=== PATIENT | female | born 1995 | race Caucasian/White ===

== ENCOUNTER → 2023-01-18 10:15 | Outpatient (BNVA) | payer MEDICAID, SELFPAY | PROVIDERS: Visit Provider Nurse Practitioner Family | DX: J02.9 Acute pharyngitis, unspecified (principal) | CPT/HCPCS: 87880 ==

== ENCOUNTER → 2023-10-21 09:56 | Outpatient (CLI) | payer MEDICAID, SELFPAY ==
--- NOTE | 2023-10-21 10:00 | US_ITS ---
WS: [id number] ULTRASOUND LEFT BREAST HISTORY: N63.20 - Unspecified lump in the left breast, unspecified..., History of recent . T he palpable area as per patient is no longer present. COMPARISON: None available. TECHNIQUE: 2-D and Doppler. Ultrasound directed to the LEFT breast on the 4:00 axis in the area of interest. This is directed by the patient. There is a mildly prominent duct with a few low-level echoes. There is no increased vasc ularity or mass. US/US breast LT limited* [id number] IMPRESSION: BI-RADS: 2-Benign FOLLOW-UP: See Report Very minimally prominent ducts in the LEFT breast at 4:00. Probably related to . No mass. No mammogram will be performed.
== END | disposition home or self-care (01) ==
LOC: RAD 09:56
PROVIDERS: PCP Nurse Practitioner; Visit Provider Nurse Practitioner
DX: N63.20 Unspecified lump in the left breast, unspecified quadrant (principal)
CPT/HCPCS: 76642

== ENCOUNTER 2024-01-02 10:22 | Outpatient (CLI) | payer MEDICAID, SELFPAY ==
--- NOTE | 2024-01-02 11:00 | MR_ITS ---
WS: [id number] MRI BRAIN WITHOUT CONTRAST HISTORY: G43.909 - Migraine, unspecified, not intractable, without... COMPARISON: None available. TECHNIQUE: Diffusion imaging, multiplanar T1, T2 and FLAIR imaging obtained. No evidence for acute infarct or hemorrhage. Malcolm-white matter differentiation is normal. There are a few tiny scattered T2 and FLAIR signal hyperintensities these are predominantly within th e subcortical frontal lobe white matter. No large territory infarct. Posterior fossa is negative. Ventricles and extra-axial spaces are normal. There is marked displacement of the cerebellar tonsils. Cerebellar tonsils are pointed and extend 1.3 cm below the foramen magnum. There is mild kinking of the medulla. No signal abnormality within the upper brainstem. There is no hydrocephalus. Normal size fourth ventricle. No scoliosis identified on the upper cervical cord. Dural venous sinuses and [place] demonstrate no abnormality on this unenhanced studies. Paranasal sinuses: Clear. Mastoid air cells: Normal. Calvarium and scalp: Intact. MR/MR head wo con* [id number] IMPRESSION: 1. Chiari I malformation. Cerebellar tonsils extend 1.3 cm below the foramen m agnum. There is no obstruction of the fourth ventricle. 2. Recommendation: MRI C-spine with and without contrast to evaluate for syrin x. 3. Minimal subcortical bifrontal lobe foci of increased signal. These are nons pecific but can be seen with migraines, hypertensive disease, smoking and diabe leonides.
== END 2024-01-02 10:23 | disposition home or self-care (01) ==
LOC: RAD 10:24
PROVIDERS: PCP Nurse Practitioner; Visit Provider Nurse Practitioner
DX: G43.909 Migraine, unspecified, not intractable, without status migrainosus (principal); G93.5 Compression of brain; Q04.8 Other specified congenital malformations of brain; H53.9 Unspecified visual disturbance
CPT/HCPCS: 70551

== ENCOUNTER 2024-05-28 17:00 | Outpatient (CLI) | payer MEDICAID, SELFPAY ==
--- NOTE | 2024-05-28 17:00 | USCV_ITS ---
Nia Anderson Age: 29 Gender: F : 1995 Exam Date: 05/28/2024 17:11 Ordering Phys: Unique Mccoy ORCHARD HAND ORCHARD HAND Technologist: R Exam Location: [facility] [place]_ Indication: Right leg pain HISTORY: Right Lower extremity pain. PROCEDURES: Venous duplex imaging was performed in only the right lower extremity. The following venous structures were evaluated: common femoral vein, profunda vein, proximal portion of the greater saphenous vein, superficial femoral vein, and the popliteal vein. In addition, the posterior tibial and peroneal trunk were evaluated. FINDINGS: Normal 2-D Doppler and augmentation and compressibility throughout the lower extremity venous structures. Additional imaging through the proximal calf veins also reveals no thrombus. Limited evaluation of the greater saphenous vein is patent with no thrombus. CONCLUSIONS No DVT right lower extremity. Dr. Amira Schumacher DO (Electronically Signed) Final Date: 31 May 2024 07:57 S
== END 2024-05-28 17:01 | disposition home or self-care (01) ==
LOC: RAD 17:00
PROVIDERS: PCP Nurse Practitioner; Visit Provider Nurse Practitioner
DX: M79.604 Pain in right leg (principal)
CPT/HCPCS: 93971